=== PATIENT | female | born 1985 | race Caucasian/White ===

== ENCOUNTER 2017-03-20 10:19 | Emergency (ER) | payer OTHER ==
[~2017-03-20] VITALS: Ht 162.6 cm; Wt 106.1 kg
[~2017-03-20 10:19] MED LIST: ADVIL PM 38 MG-1 TAB PO; ALBUTEROL0.09 MG/A1 INH; ANAFRANIL75 MG PO; CIPRO500 M1 PO; FLAGYL500 MG PO; METFORMIN HCL500 M3 PO; PATADAY 2.5 ML2.5 ML OPH; PROTONIX 40MG T40 MG PO; TESSALON PERLE100 MG PO; VICODIN 5-3001 EACH PO; ZITHROMAX Z-PA250 M1 PO; ZOFRAN ODT4 M1 SL; ZOFRAN ODT4 MG PO
--- NOTE | 2017-03-20 11:18 | ED GENERAL ADULT ---
History of Present Illness General Chief Complaint: Upper Respiratory Sx/Fever Stated Complaint: 27 WEEKS PRE/URI/VOMITING Source: patient Exam Limitations: no limitations Vital Signs & Intake/Output Vital Signs & Intake/Output Vital Signs Date Time Temp Pulse Resp B/P B/P Pulse O2 O2 Flow FiO2 Mean Ox Delivery Rate 03/20 1930 98.2 85 18 121/73 97 Room Air 03/20 1538 97.7 82 18 116/73 96 Room Air 03/20 1235 97.3 79 18 115/69 97 Room Air ED Intake and Output 03/21 0000 03/20 1200 Intake Total Output Total Balance Patient 234 lb Weight Allergies Coded Allergies: ferrous fumarate (From 1 + IRON) (Intermediate, RASH 12/21/16) folic acid (From 1 + IRON) (Intermediate, RASH 12/21/16) vit,tx calc,iron,folic acd(less thn 1 mg) (From 1 + IRON) ( Intermediate, RASH 12/21/16) vitamins with calcium (From 1 + IRON) (Intermediate, RASH ) strawberry (Intermediate, RASH 12/21/16) Reconcile Medications Ondansetron (Zofran Odt) 4 MG TAB.RAPDIS 1 TAB SL TID NAUSEA Ondansetron (Zofran Odt) 4 MG TAB.RAPDIS 1 TAB SL TID PRN NAUSEA Triage Note: 27 WEEK FEMALE STATES THAT SHE HAS HAD A COUGH FOR THE PAST COUPLE OF DAYS THAT HAS BEEN MAKING HER VOMIT, PT CALLED HER OB WHO TOLD HER TO COME TO ER DUE TO SHE HAS NOT FELT THE BABY MOVE FOR THE PAST 24 HOURS AND QUESTION DEHYDRATION. CBC CALLED BY THIS NURSE WHO SPOKE TO MONY NASCIMENTO PT IS TO BE SEEN IN ER AND THAT THEY WILL COME DOWN AND DO HEART TONES AT BEDSIDE. Triage Nurses Notes Reviewed? yes Onset: Abrupt Duration: day(s): Timing: recent history Injury Environment: home No Modifying Factors: none : Yes Patient currently breastfeeds: No HPI: 31-year-old female approximately 27 weeks comes into the emergency room with complaints of nausea vomiting weakness cough of her story congestion. Patient has been feeling sick for the past 2 days. She feels dehydrated. She reports that she has not felt the baby move since yesterday. She denies any diarrhea. Denies any vaginal bleeding or leakage of fluid. Some abdominal cramping. 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 She currently sees Dr. mancuso is in the process of getting switch over to Dr. Anderson. (Ethan Bell) Past History Travel History Traveled to [place] past 21 day No Medical History Any Pertinent Medical History? see below for history Neurological: NONE EENT: NONE Cardiovascular: NONE Respiratory: NONE Gastrointestinal: NONE Hepatic: NONE Renal: NONE Musculoskeletal: NONE Psychiatric: NONE Endocrine: NONE Blood Disorders: NONE Cancer(s): NONE FINANCIAL INSTITUTION TREASURER/Reproductive: PCOS Surgical History Surgical History: Psychosocial History What is your primary language Malagasy Tobacco Use: Never used ETOH Use: denies use Illicit Drug Use: denies illicit drug use Family History Hx Contributory? No (Ethan Bell) Review of Systems Review of Systems Constitutional: Reports: see HPI. EENTM: Reports: see HPI. Respiratory: Reports: see HPI. Cardiovascular: Reports: no symptoms. GI: Reports: see HPI. Genitourinary: Reports: no symptoms. Musculoskeletal: Reports: no symptoms. Skin: Reports: no symptoms. Neurological/Psychological: Reports: no symptoms. Hematologic/Endocrine: Reports: no symptoms. Immunologic/Allergic: Reports: no symptoms. All Other Systems: Reviewed and Negative (Ethan Bell) Physical Exam Physical Exam General Appearance: well developed/nourished, alert, awake Head: atraumatic Eyes: Bilateral: normal appearance, EOMI. Ears, Nose, Throat: normal ENT inspection, hearing grossly normal, DRY MUCOUS MEMBRANES Neck: normal inspection Respiratory: normal breath sounds, no respiratory distress Cardiovascular: regular rate/rhythm Gastrointestinal: soft, non-tender Back: normal inspection Extremities: normal inspection Neurologic/Psych: awake, alert, oriented x 3, normal gait Skin: intact, normal color Core Measures ACS in differential dx? No CVA/TIA Diagnosis: No Sepsis Present: No Sepsis Focused Exam Completed? No (Ethan Bell) Progress Differential Diagnoses I considered the following diagnoses in my evaluation of the patient: Influenza , pneumonia, bronchitis, URI, preeclampsia, gastritis, gastroenteritis, Plan of Care: Orders Procedure Date/time Status Clear Liquid Diet 03/20 D Active VIRAL CULTURE 03/20 1345 Active Laboratory Tests 03/20/17 1345: CBC w Diff NO MAN DIFF REQ, RBC 3.77 L, MCV 83.2, MCH 28.1, RDW 13.5, MPV 10.0, Gran % 78.1 H, Lymphocytes % 15.8 L, Monocytes % 4.8, Eosinophils % 1.1, Basophils % 0.2, Absolute Granulocytes 7.9 H, Absolute Lymphocytes 1.6, Absolute Monocytes 0.5, Absolute Eosinophils 0.1, Absolute Basophils 0, PUBS MCHC 33.8, Virus Culture Pending 03/20/17 1204: Anion Gap 14, Estimated GFR > 60, BUN/Creatinine Ratio 11.7, Glucose 89, Calcium 9.1, Total Bilirubin 0.3, AST 27, ALT 34, Alkaline Phosphatase 98, Total Protein 6.4, Albumin 3.5, Globulin 2.9, Albumin/Globulin Ratio 1.2, Amylase 40, Lipase 38, Urinalysis LIGHT H, Urine Color YEL, Urine Clarity HAZY H, Urine pH 6.0, Ur Specific [place] 1.025, Urine Protein TRACE H, Urine Ketones NEG, Urine Nitrite NEG, Urine Bilirubin POS@ICTO H, Urine Urobilinogen 2.0 H, Ur Leukocyte Esterase NEG, Ur Microscopic SEDIMENT EXAMINED, Urine RBC RARE, Urine WBC 1-3 H, Ur Epithelial Cells MANY H, Urine Bacteria MANY H, Urine Mucus MANY H, Urine Hemoglobin NEG, Urine Glucose NEG Microbiology 03/20 1345 NASOPHARYN: Influenza Virus A & B Rapid Smear - COMP INFLUENZA TYPE B Diagnostic Imaging: Viewed by Me: Ultrasound. Discussed w/RAD: Ultrasound. Radiology Impression: PATIENT: ETHEL AYERS PRESENT AGE: 31 PATIENT ACCOUNT NO: [id number] : 84 LOCATION: [facility] ORDERING PHYSICIAN: Ethan ROMO SERVICE DATE: 03/20/17 EXAM TYPE: US - US - VIABILITY EXAMINATION: US , VIABILITY CLINICAL INFORMATION : No vomiting. Cough. 27 weeks. No feelings of baby movement since yesterday. COMPARISON: None TECHNIQUE: Limited sonographic evaluation of the anterior was performed via a transabdominal approach. FINDINGS: Gestational age by last the superior is 27 weeks 3 days, GAVINO of 06/16/2017 Placenta is anterior and otherwise unremarkable. heart rate is regular at 135 bpm. Biparietal diameter: 6.73 cm, 27 weeks 1 day Head circumference: 24.96 cm, 27 weeks 1 day Abdominal circumference: 22.1 cm, 26 weeks 4 days Femur length: 4.6 cm, 26 weeks 6 days AUA: 27 weeks 0 days, GAVINO of 06/19/2017 Limited assessment of the morphology is unremarkable. Estimated weight is 2 lbs. 2 oz. (+/- 5 ounces ), 9 and 71 g, +/- 142 g LMP percentile: 15 percent IMPRESSION: Single viable intrauterine fetus with normal heart rate. Growth is within normal limits based on dates from last menstrual period. DICTATED BY: Colby Hauser MD DATE/TIME DICTATED:03/20/171153 LOAN REPRESENTATIVE:MILENA DATE/TIME TRANSCRIBED:1153 CONFIDENTIAL, DO NOT COPY WITHOUT APPROPRIATE AUTHORIZATION. < Electronically signed in Other Vendor System> SIGNED BY: Colby Hauser MD 03/20/17 1209 Initial ED EKG: none Comments: 03/20/2017 11:02:43 PM Patient was observed and reevaluated multiple times here in the emergency room. She was able to tolerate oral liquids. She had a nonstress test which showed no abnormalities by the CBC. Spoke with Dr. anderson on the phone. Follow-up as outpatient is all she can tolerate oral liquids. She is reevaluated as stated before multiple times. Case was discussed with Dr. campo. ([place]) Departure Departure Disposition: HOME OR SELF CARE Condition: Stable Clinical Impression Primary Impression: Influenza B Referrals: Patient Has No Primary Care Dr (PCP/Family) Additional Instructions: Take Zofran ODT as prescribed. Rest. Drink plenty fluids. isolation precautions at home. Follow-up with S[employer]IOR [employer] W[employer]HOUSE ARCHIT[employer] doctor this week. Return if any other concerns worsening symptoms. Please go over all results of today's visit with your primary care doctor. Contact your primary care doctor to let them know you were here in the emergency room. There may be nonspecific findings which may not be related to your visit today here in the emergency room but may require further evaluation and chronic monitoring by your primary care doctor. If you had a laceration today the chance of foreign body always remains. You should follow-up with your primary care doctor for recheck in 3-5 days for a wound check. If you had an x-ray done there is a chance that a fracture could have been missed on initial read and you should follow-up with your primary care doctor for repeat x-rays if symptoms persist. If your blood pressure was elevated here in the emergency room please have rechecked by hyour primary care doctor within the next 48. If you were prescribed a narcotic here in the emergency room or any type of controlled substances you're not allowed to drive while taking this medication or operate any type of heavy machinery. Narcotics can make you feel lightheaded dizziness nausea and can cause constipation. You may need to cook pickled meat a stool softener. Thank you for choosing [facility] emergency room. Please return to the emergency room immediately if you have any other concerns worsening of symptoms. Departure Forms: Customer Survey General Discharge Information Prescriptions: Current Visit Scripts Ondansetron (Zofran Odt) 1 TAB SL TID #10 TAB (Ethan Bell) PA/MOBILE UNIT ASSISTANT Co-Sign Statement Statement: ED Attending supervision documentation- [] I saw and evaluated the patient. I have also reviewed all the pertinent lab results and diagnostic results. I agree with the findings and the plan of care as documented in the PA's/MOBILE UNIT ASSISTANT's documentation. [X] I have reviewed the ED Record and agree with the PA's/MOBILE UNIT ASSISTANT's documentation. [] Additions or exceptions (if any) to the PAs/MOBILE UNIT ASSISTANT's note and plan are summarized below: [] (Vasile RYAN,[place]) Critical Care Note Critical Care Note Critical Care Time: non-applicable (Ethan Bell)
--- NOTE | 2017-03-20 12:05 | ULTRASOUND REPORT ---
EXAMINATION: US , VIABILITY CLINICAL INFORMATION: No vomiting. Cough. 27 weeks. No feelings of baby movement since yesterday. COMPARISON: None TECHNIQUE: Limited sonographic evaluation of the anterior was performed via a transabdominal approach. FINDINGS: Gestational age by last the superior is 27 weeks 3 days, GAVINO of 06/16/2017 Placenta is anterior and otherwise unremarkable. heart rate is regular at 135 bpm. Biparietal diameter: 6.73 cm, 27 weeks 1 day Head circumference: 24.96 cm, 27 weeks 1 day Abdominal circumference: 22.1 cm, 26 weeks 4 days Femur length: 4.6 cm, 26 weeks 6 days AUA: 27 weeks 0 days, GAVINO of 06/19/2017 Limited assessment of the morphology is unremarkable. Estimated weight is 2 lbs. 2 oz. (+/- 5 ounces), 9 and 71 g, +/- 142 g LMP percentile: 15 percent IMPRESSION: Single viable intrauterine fetus with normal heart rate. Growth is within normal limits based on dates from last menstrual period.
[2017-03-20 14:08] LABS: ABSOLUTE BASOPHIL COUNT 0 /CUMM (0.0-0.2); ABSOLUTE EOSINOPHIL COUNT 0.1 /CUMM (0.0-0.7); ABSOLUTE GRANULOCYTE CT 7.9 /CUMM (1.4-6.5); ABSOLUTE LYMPH COUNT 1.6 /CUMM (1.2-3.4); ABSOLUTE MONOCYTE COUNT 0.5 /CUMM (0.10-0.60); BASOPHIL % 0.2 % (0.0-2.0); EOSINOPHIL % 1.1 % (0-5); GRANULOCYTE % 78.1 % (42.2-75.2); HEMATOCRIT 31.3 % (37-47); MEAN CORPUSCULAR HGB 28.1 PG (27.0-31.0); MEAN CORPUSCULAR HGB CONC 33.8 G/DL (33.0-37.0); MEAN CORPUSCULAR VOLUME 83.2 FL (81.0-99.0); PLATELET COUNT 246 /CUMM (130-400); RBC DISTRIBUTION WIDTH 13.5 % (11.5-14.5); RED BLOOD CELL CT 3.77 /CUMM (4.20-5.40); WHITE BLOOD CELL COUNT 10.1 /CUMM (4.8-10.8)
[2017-03-20 19:30] VITALS: BP 121/73
[2017-03-20] MEDS ORDERED: ZOFRAN ODT4 M1 SL (19:51)
== END 2017-03-20 20:03 ==
LOC: ERH 10:19
PROVIDERS: Physician Assistant Medical
DX: O99.513 Diseases of the respiratory system complicating pregnancy, third trimester (principal); J10.1 Influenza due to other identified influenza virus with other respiratory manifestations; Z3A.27 27 weeks gestation of pregnancy
CPT/HCPCS: 81001; 87804; 87804-59; 96374; 96375; 96376; J0131; J2405

== ENCOUNTER 2017-06-10 13:43 | Inpatient (IN) | payer OTHER ==
[~2017-06-10] VITALS: Ht 162.6 cm; Wt 104.8 kg
[2017-06-10 15:36] VITALS: BP 132/85
[2017-06-10 15:36] LABS: ABSOLUTE BASOPHIL COUNT 0 /CUMM (0.0-0.2); ABSOLUTE EOSINOPHIL COUNT 0.1 /CUMM (0.0-0.7); ABSOLUTE GRANULOCYTE CT 12.6 /CUMM (1.4-6.5); ABSOLUTE LYMPH COUNT 2.5 /CUMM (1.2-3.4); ABSOLUTE MONOCYTE COUNT 0.5 /CUMM (0.10-0.60); BASOPHIL % 0.2 % (0.0-2.0); EOSINOPHIL % 0.5 % (0-5); HEMATOCRIT 35.7 % (37-47); MEAN CORPUSCULAR HGB 27.3 PG (27.0-31.0); MEAN CORPUSCULAR HGB CONC 33.1 G/DL (33.0-37.0); MEAN CORPUSCULAR VOLUME 82.7 FL (81.0-99.0); MEAN PLATELET VOLUME 10.2 FL (7.4-10.4); PLATELET COUNT 363 /CUMM (130-400); RBC DISTRIBUTION WIDTH 14.3 % (11.5-14.5); RED BLOOD CELL CT 4.32 /CUMM (4.20-5.40); WHITE BLOOD CELL COUNT 15.7 /CUMM (4.8-10.8)
--- NOTE | 2017-06-10 21:01 | History & Physical ---
General Information and HPI MD Statement: I have seen and personally examined ETHEL AYERS and documented this H&P. The patient is a 32 year old female at [39] weeks and [1] days gestation who presented with a chief complaint of [oligohydramnios]. Source of Information: patient, old records History of Present Illness: This patient is a 31-year-old 2 para 1 EDC 06/16/2017 at 39 weeks and 1 day presents to labor and delivery for follow-up NST and ultrasound for amniotic fluid index secondary to borderline fluid levels 2 days ago. Her NST is reactive however the ultrasound reveals a amniotic index 1.4 cm. History is significant for previous and patient desires repeat elective section. care is significant for transfer from Dr. Rashad Tan and past history of gestational diabetes, positive GBS colonization. Patient states that she never went for her 1 hour glucose testing. Her hemoglobin A1c is 5.5. 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 EENTM: Reports: no symptoms. Cardiovascular: Reports: no symptoms. Respiratory: Reports: no symptoms. GI: Reports: no symptoms. Genitourinary: Reports: no symptoms. Musculoskeletal: Reports: no symptoms. Skin: Reports: no symptoms. Neurological/Psychological: Reports: no symptoms. Hematologic/Endocrine: Reports: no symptoms. Immunologic/Allergic: Reports: no symptoms. All Other Systems: Reviewed and Negative Exam & Diagnostic Data Last 24 Hrs of Vital Signs/I&O Vital Signs Date Time Temp Pulse Resp B/P B/P Pulse O2 O2 Flow FiO2 Mean Ox Delivery Rate 06/10 1536 132/85 Intake & Output 06/10 1600 06/10 0800 06/10 0000 Intake Total Output Total Balance Patient 231 lb Weight Obstetric Exam Wgt Gained During : 35 pounds Pelvimetry: Gynecoid Dilation (cm): 0 Effacement (%): 0 Station: 0 Membranes: intact Fluid: unknown Fundal Height (cm): 40 Multiple Gestation? No Contractions: Occasional Infant #1 - FHR Baseline: 135 Category: 1 Estimated Weight: 7 pounds Presentation: Cephalic Patient for Induction? No Physical Exam: HEENT: Normocephalic atraumatic Chest: Clear to auscultation bilaterally Cardiovascular: Normal S1-S2 normal Abdomen: Gravid, cephalic, estimated weight 7 pounds Pelvic extremities: No clubbing cyanosis or edema Neurologic nonfocal Labs Blood Type & Rh: o pos Antibody Screen: neg Hct/Hgb & Platelets #1: 41/13/228 Hct/Hgb & Platelets #2: 35/11/363 Rubella: imm VDRL #1: nr VDRL #2: nr HbsAg: neg HIV #1: neg HIV #2 neg 1 Hr PG: not done Group B Strep: positive Initial Ultrasound: wnl Anatomy Ultrasound: wnl Ultrasound for EFW: 7 Genetic Testing: neg Last 24 Hrs of Labs/Mike: Laboratory Tests 06/10/17 1515: CBC w Diff NO MAN DIFF REQ, RBC 4.32, MCV 82.7, MCH 27.3, MCHC 33.1, RDW 14.3, MPV 10.2, Gran % 80.0 H, Lymphocytes % 15.8 L, Monocytes % 3.5, Eosinophils % 0.5, Basophils % 0.2, Absolute Granulocytes 12.6 H, Absolute Lymphocytes 2.5, Absolute Monocytes 0.5, Absolute Eosinophils 0.1, Absolute Basophils 0, Urine Color YEL, Urine Clarity HAZY H, Urine pH 6.5, Ur Specific [place] 1.020, Urine Protein NEG, Urine Ketones NEG, Urine Nitrite NEG, Urine Bilirubin NEG, Urine Urobilinogen 0.2, Ur Leukocyte Esterase SMALL H, Ur Microscopic SEDIMENT EXAMINED, Urine RBC FEW H, Urine WBC 5-10 H, Ur Epithelial Cells MOD H, Urine Bacteria MOD H, Urine Mucus FEW, Urine Hemoglobin NEG, Urine Glucose NEG Microbiology 06/10 1515 URINE ROUT: Urine Culture - RECD Assessment/Plan Assessment/Plan: 39w1d with oligo previous c section noncompliance plan: rpt c section As Ranked By This Provider Problem List: 1. Oligohydramnios Core Measures Venous Thromboembolism VTE Risk Factors Surgery No Mechanical VTE Prophylaxis d/t N/A MechProphylax Ordered No VTE Pharm Prophylaxis d/t NA PharmProphylax ordered
[2017-06-11 07:51] LABS: ABSOLUTE BASOPHIL COUNT 0.1 /CUMM (0.0-0.2); ABSOLUTE EOSINOPHIL COUNT 0.1 /CUMM (0.0-0.7); ABSOLUTE GRANULOCYTE CT 12.6 /CUMM (1.4-6.5); ABSOLUTE LYMPH COUNT 3.2 /CUMM (1.2-3.4); ABSOLUTE MONOCYTE COUNT 0.6 /CUMM (0.10-0.60); BASOPHIL % 0.3 % (0.0-2.0); EOSINOPHIL % 0.7 % (0-5); MEAN CORPUSCULAR HGB 27.4 PG (27.0-31.0); MEAN CORPUSCULAR HGB CONC 33.5 G/DL (33.0-37.0); MEAN CORPUSCULAR VOLUME 81.8 FL (81.0-99.0); MEAN PLATELET VOLUME 10.7 FL (7.4-10.4); PLATELET COUNT 301 /CUMM (130-400); RBC DISTRIBUTION WIDTH 14.4 % (11.5-14.5); RED BLOOD CELL CT 3.53 /CUMM (4.20-5.40); WHITE BLOOD CELL COUNT 16.6 /CUMM (4.8-10.8)
[2017-06-11 08:02] LABS: HEMATOCRIT 28.9 % (37-47)
--- NOTE | 2017-06-11 10:44 | PN- Post Delivery/GYN ---
Subjective Subjective: Well-built white female Abdomen soft nontender Dressing in place Manzana[place] in place urine clear Extremities +3 edema negative Homans Objective Last 24 Hrs of Vital Signs/I&O Vital Signs Date Time Temp Pulse Resp B/P B/P Pulse O2 O2 Flow FiO2 Mean Ox Delivery Rate 06/10 1536 132/85 Physical Exam: Well-built white female glasses Abdomen soft nontender Incision with bandage Manzanares was clear urine Extremities +3 edema negative Homans Assessment/Plan Assessment/Plan Assessment i status post repeat section Plan check CB C advanced diet advance ambulation at 2 PM
--- NOTE | 2017-06-12 09:11 | PN- Post Delivery/GYN ---
Subjective Subjective: Positive flatus Objective Last 24 Hrs of Vital Signs/I&O As per paper chart Physical Exam: Pale white female with glasses HEENT anicteric Lungs clear Fundus firm nontender Incision clean dry and intact Lochia minimal Extremities +2 edema negative reflexes negative Homans Assessment/Plan Assessment/Plan Assessment status post section Plan is advanced diet advance ambulation check CB C
[2017-06-13] MEDS ORDERED: PERCOCET 5-3251 EACH PO (09:17)
[2017-06-13] MEDS ORDERED: IBUPROFEN800 M1 PO (09:17)
== END 2017-06-13 11:30 | DRG 540 ==
LOC: CBCO 13:43 → GNO 15:07
PROVIDERS: Obstetrics & Gynecology
PROC: 10D00Z1 Extraction of Products of Conception, Low, Open Approach (ICD-10-PCS; principal; 2017-06-10)
DX: O41.03X0 Oligohydramnios, third trimester, not applicable or unspecified (principal); O34.211 Maternal care for low transverse scar from previous cesarean delivery; N85.8 Other specified noninflammatory disorders of uterus; O99.824 Streptococcus B carrier state complicating childbirth; Z3A.39 39 weeks gestation of pregnancy; Z37.0 Single live birth; Z88.8 Allergy status to other drugs, medicaments and biological substances; Z91.018 Allergy to other foods; O99.334 Smoking (tobacco) complicating childbirth
CPT/HCPCS: GNOP; GNOS; 36415; 59025; 81001; 87086; J0131; J0690; J1200; J1650; J1885; J7120; Q2036